=== PATIENT | female | born 1980 ===

== ENCOUNTER → 2022-11-24 | Outpatient (REF) | payer BC ==
[2022-11-24 17:55] LABS: FERRITIN 22.8 NG/ML (7.3-270.7)
[2022-11-24 17:56] LABS: PERCENT SATURATION 51.6 % (13.2-45.0)
== END ==
LOC: M LAB REF 16:26
PROVIDERS: ATTEND Internal Medicine
DX: D50.9 Iron deficiency anemia, unspecified (principal)

== ENCOUNTER → 2025-03-02 | Outpatient (REF) | payer BC ==
[2025-03-02 18:12] LABS: ESTRADIOL 79.3 PG/ML; PROGESTERONE 6.78 NG/ML
[2025-03-03 09:43] LABS: LUTEINIZING HORMONE 3.6 mIU/ML
== END ==
LOC: M LAB REF 17:15
PROVIDERS: ATTEND Internal Medicine
DX: L50.9 Urticaria, unspecified (principal); N95.1 Menopausal and female climacteric states